=== PATIENT | female | born 2005 ===

== ENCOUNTER 2025-02-19 17:58 | Outpatient (CLI) | payer OTHER, SELFPAY ==
--- NOTE | 2025-02-19 18:09 | DI.US.S_ITS ---
PROCEDURE: US OB BIOPHYSICAL PROFILE INDICATIONS: decreased movement OUTSIDE/PRIOR DATING DATA: Last menstrual period (LMP): 08/08/2024. LMP-based estimated date of delivery (PHANI): 05/15/2025. First dating scan (date and location): Unknown. Estimated date of delivery (PHANI) from first dating scan: Unknown. TECHNIQUE: Real-time scanning was performed of the fetus for purposes of biophysical profile. Endovaginal scanning: Was not performed COMPARISON: None. FINDINGS: General: A single living intrauterine gestation is present. Presentation: Breech. Placenta: Placental position is anterior , without previa. Amniotic fluid index: 17.3 cm, normal range is 5-24 cm. Single deepest vertical pocket is 6 cm. heart rate: 144 beats per minute. Maternal cervical canal: 3.3 cm long. Normal lower limit is 2.5 cm. Biophysical profile: Tone: 2 points. Movement: 2 points. Respiration: 2 points. Largest pocket of fluid: 2 points. IMPRESSION: Single intrauterine gestation with estimated gestational age of 27 weeks 6 days and 10/15 biophysical profile We strive to produce accurate, complete, and clear reports of imaging services. To assist us in improving patient care, this report was composed using standard report templates and voice recognition software. Therefore, it may contain abnormal punctuation, insertions and/or omissions. Occasional wrong-word or sound-alike substitutions may occur. Though we review the report and make efforts to correct it, we do recommend that the report be read carefully in proper context to recognize any text inaccuracies. Dictated by: Darius Marrero M.D. on 02/19/2025 at 17:57 Approved by: Darius Marrero M.D. on 02/19/2025 at 17:59
--- NOTE | 2025-02-19 18:41 | P.TNLD_ITS ---
Visit Information Visit Information Date of evaluation: 02/19/25 Primary OB Provider: None On-call OB Provider: Oneida Ruiz Comments/Additional reasons for admission: Decreased movement since Friday. Baby has been moving a lot since about 20 weeks, but the movements in the last few days have seemed to be weaker, and less frequent. She became concerned today and sought care in the ER in Friday. A bedside ultrasound confirmed cardiac activity, but without the ability to fully assess status, she was recommended to come here for evaluation. She reports she had good care up until 20 weeks in [place], but then recently moved to this area. She has yet to establish care in this area. Vital Signs Vital Signs: BP: 116/64, P: 93, Temp: 36.7, O2 Sat 98% RA [facility] Family History (Updated 02/19/25 @ 18:45 by Oneida Ruiz DO) Mother No complications affecting first Review of Systems Gastrointestinal Comments: Anterior pelvic mild cramping this morning, none now Genitourinary Genitourinary: Denies abnormal vaginal bleeding and Denies vaginal pruritus Exam Const General: cooperative, healthy appearing and comfortable Resp Effort & Inspection: normal respiratory effort and no respiratory distress Cardio Rate: regular rate Rhythm: regular rhythm GI Inspection: normal to inspection Palpation: soft Skin General: no rashes or lesions noted Neuro General: patient alert, patient awake and patient oriented x3 Psych Appearance: grossly normal Objective Imaging Biophysical Profile: My impression: BPP 10/15 Evaluation Evaluation Baseline heart rate: 135 Variability: Moderate (6-25) monitor accelerations: Present Monitor Decelerations: Absent Contraction Frequency (minutes): 0 Category of Tracing: Reactive Diagnosis, Plan/Disposition Final Diagnosis (1) Decreased movement: Status: Acute Plan/Disposition Plan: - Reassuring status, 12/17 BPP + NST - Low risk , needs to establish care. Patient has two charts within the system- recently established with Dr. Tiwari. Follow-up as scheduled. - Discharge home with return precautions Oneida Ruiz DO OB Disposition: home
== END 2025-02-19 19:06 | disposition home or self-care (01) ==
LOC: LABOR 18:11 → OB 02-21 09:16
PROVIDERS: Referring Provider Student in an Organized Health Care Education/Training Program; Visit Provider Student in an Organized Health Care Education/Training Program
DX: O36.8190 Decreased fetal movements, unspecified trimester, not applicable or unspecified (principal); Z3A.00 Weeks of gestation of pregnancy not specified
CPT/HCPCS: 59025; 76819; G0378; G0379